=== PATIENT | male | born 1995 ===

== ENCOUNTER 2022-10-08 12:32 | Emergency (ER) | payer OTHER, SELFPAY ==
[2022-10-08] VITALS (7 sets, daily range): BP systolic 119–147; BP diastolic 69–87; PULSE 57–81; RESP 14–16; TEMP 36.4; O2SAT 98–100; BMI 24.3
--- NOTE | 2022-10-08 13:02 | DI.CT.S_ITS ---
PROCEDURE: CT HEAD/BRAIN WO CON INDICATIONS: Head injury; L hemotympanum TECHNIQUE: Noncontrast 4.5 mm thick angled axial sections acquired from the foramen magnum to the vertex, with coronal and sagittal reformats. For radiation dose reduction, the following was used: automated exposure control, adjustment of mA and/or kV according to patient size. COMPARISON: None. FINDINGS: Image quality: Excellent. CSF spaces: Basal cisterns are patent. No extra-axial fluid collections. Ventricles are normal in size and shape. Brain: No midline shift. No intracranial masses or hemorrhage. Lake-white matter interface is normal. Skull and face: Calvarium and visualized facial bones are intact, without suspicious lesions. Sinuses: Visualized sinuses and mastoids are clear. IMPRESSION: No acute intracranial process. Dictated by: Zenon Kaiser M.D. on 10/08/2022 at 13:43 Approved by: Zenon Kaiser M.D. on 10/08/2022 at 13:45
--- NOTE | 2022-10-08 14:12 | DI.RAD.S_ITS ---
PROCEDURE: XR CLAVICLE LT INDICATIONS: Fall TECHNIQUE: 2 views of the clavicle were acquired. COMPARISON: None. FINDINGS: Bones: Comminuted, displaced fracture of the midclavicle. Soft tissues: No suspicious soft tissue calcifications. IMPRESSION: Comminuted, displaced fracture of the midclavicle. No pneumothorax. Dictated by: Milton Cano M.D. on 10/08/2022 at 14:36 Approved by: Milton Cano M.D. on 10/08/2022 at 14:36
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
== END 2022-10-08 15:00 | disposition home or self-care (01) ==
PROVIDERS: Emergency Provider Student in an Organized Health Care Education/Training Program
DX: S42.002A Fracture of unspecified part of left clavicle, initial encounter for closed fracture (principal); H73.892 Other specified disorders of tympanic membrane, left ear; V19.9XXA Pedal cyclist (driver) (passenger) injured in unspecified traffic accident, initial encounter
CPT/HCPCS: 70450; 73000; 99284